=== PATIENT | female | born 1975 | race Caucasian/White ===

== ENCOUNTER 2018-03-19 18:58 | Emergency (ER) | payer BC ==
[~2018-03-19] VITALS: Ht 170.2 cm; Wt 90.7 kg
--- NOTE | 2018-03-19 19:12 | NUR ---
PT A/OX4, RESPONSIVE TO VERBAL AND TACTILE STIMULI. SPEAKS CLEARLY AND C/O R SHOULDER PAIN THAT RADIATES TO BELOW THE R SCAPULA X 2 MONTHS, NO PROVOKING FACTOR, SHARP, 12/31, CONSTANT. PT DENIES INJURY. PMSC INTACT AND ROM WNL. ER MD AT BEDSIDE.
[2018-03-19] MEDS ORDERED: IBUPROFEN 600 MG TABLET ONE (19:29)
[2018-03-19] MEDS: IBUPROFEN 600 MG TABLET PO ONE (19:31)
--- NOTE | 2018-03-19 19:32 | NUR ---
Patient discharged to home in stable conditon. Written and verbal after care instructions given. Patient verbalizes understanding of instructions. PT SELF-AMBULATED WITHOUT DIFFICULTY. ALL BELONGINGS W/ PT.
[2018-03-19 19:35] VITALS: BP 126/70
== END 2018-03-19 19:36 | disposition home or self-care (01) ==
LOC: ER 19:00
DX: S46.911A Strain of unspecified muscle, fascia and tendon at shoulder and upper arm level, right arm, initial encounter (principal); M54.12 Radiculopathy, cervical region; X58.XXXA Exposure to other specified factors, initial encounter; Y93.89 Activity, other specified; Y92.89 Other specified places as the place of occurrence of the external cause; Y99.8 Other external cause status
CPT/HCPCS: 99282; A4663